=== PATIENT | male | born 1985 | race Caucasian/White ===

== ENCOUNTER 2017-10-11 18:09 | Emergency (ER) | payer OTHER ==
[~2017-10-11] VITALS: Ht 180.3 cm; Wt 98.7 kg
[~2017-10-11 18:09] MED LIST: COLACE100 MG PO; NOHOMEMEDS; ZANTAC150 MG PO
[2017-10-11 18:22] VITALS: BP 129/82
[2017-10-11] MEDS ORDERED: TRAMADOL HCL50 MG PO (19:36)
== END 2017-10-11 20:02 | disposition home or self-care (01) ==
LOC: EME 18:09
DX: S93.402A Sprain of unspecified ligament of left ankle, initial encounter (principal); X50.9XXA Other and unspecified overexertion or strenuous movements or postures, initial encounter
CPT/HCPCS: 73610; 99281; 99283